=== PATIENT | female | born 1990 | race Caucasian/White ===

== ENCOUNTER 2019-12-24 13:14 | Emergency (ER) | payer MEDICAID ==
[~2019-12-24] VITALS: Ht 157.5 cm; Wt 77.3 kg
[2019-12-24 15:14] LABS: BASOPHILS % (AUTO) 0.6 % (0-1); EOSINOPHILS # (AUTO) 0.1 X10'3 (0-0.9); EOSINOPHILS % (AUTO) 0.8 % (0-6); HEMOGLOBIN 13.6 g/dl (12.0-16.0); LYMPHOCYTES # (AUTO) 1.3 X10'3 (1.1-4.8); LYMPHOCYTES % (AUTO) 15.1 % (21-51); MEAN CORPUSCULAR HEMOGLOBIN 28.4 PG (27.0-31.0); MEAN CORPUSCULAR HGB CONC 33.9 g/dL (33.0-36.5); MEAN CORPUSCULAR VOLUME 83.6 FL (78-98); MEAN PLATELET VOLUME 8.9 FL (7.4-10.4); MONOCYTES # (AUTO) 0.3 X10'3 (0-0.9); MONOCYTES % (AUTO) 3.9 % (2-12); NEUTROPHILS # (AUTO) 6.7 X10'3 (1.8-7.7); NEUTROPHILS % (AUTO) 79.6 % (42-75); PLATELET COUNT 246 X10'3 (140-440); RED BLOOD COUNT 4.78 X10'6 (4.20-5.60); RED CELL DISTRIBUTION WIDTH 13.2 % (11.5-14.5); WHITE BLOOD COUNT 8.4 X10'3 (4.5-11.0)
[2019-12-24] MEDS ORDERED: CLIN-90 PO (16:27)
[2019-12-24] MEDS ORDERED: HYDR-3965 PO (16:27)
[2019-12-24 16:37] VITALS: BP 130/85
== END 2019-12-24 16:39 | disposition home or self-care (01) ==
LOC: EEVIPCON 13:15 → ER 13:15
DX: O03.9 Complete or unspecified spontaneous abortion without complication (principal); O99.611 Diseases of the digestive system complicating pregnancy, first trimester; K08.89 Other specified disorders of teeth and supporting structures; O99.331 Smoking (tobacco) complicating pregnancy, first trimester; F17.200 Nicotine dependence, unspecified, uncomplicated; Z3A.01 Less than 8 weeks gestation of pregnancy
CPT/HCPCS: 36415; 76817; 84702; 85025; 86900; 86901; 99284

== ENCOUNTER 2020-02-19 20:51 | Emergency (ER) | payer OTHER, MEDICAID ==
[~2020-02-19] VITALS: Ht 157.5 cm; Wt 77.3 kg
[~2020-02-19 20:51] MED LIST: CLIN-97 PO
[2020-02-19 20:56] VITALS: BP 148/101
== END 2020-02-19 21:49 | disposition home or self-care (01) ==
LOC: ER 20:51
DX: J20.9 Acute bronchitis, unspecified (principal); F17.200 Nicotine dependence, unspecified, uncomplicated; Z88.0 Allergy status to penicillin
CPT/HCPCS: 71046; 99283